=== PATIENT | male | born 1970 | race American Indian/Alaskan Native ===

== ENCOUNTER 2019-11-26 13:36 | Inpatient (IN) | payer OTHER ==
[2019-11-26] MEDS ORDERED: HYDROmorphone 1 MG/1 ML INJ IV ONE (14:30)
[2019-11-26] MEDS ORDERED: ONDANSETRON 4 MG/2 ML INJ IV ONE (14:30)
[2019-11-26] MEDS ORDERED: SODIUM CHLORIDE 0.9% 1000 ML 1,000 ML IV ONE (14:31)
[2019-11-26] MEDS ORDERED: PANTOPRAZOLE 40 MG INJ IV ONE (14:31)
--- NOTE | 2019-11-26 14:40 | Emergency Department Report ---
HPI - General Chief Complaint: Nausea/Vomiting/Diarrhea Time Seen by Provider: 11/26/19 14:22 - HPI HPI: Room 23 The patient is a 49-year-old male present with a chief complaint of abdominal pain and hematemesis. The patient states he has had pain in his left upper quadrant radiating to his back constantly for the past 2 weeks. Patient states he has had to sleep sitting up for the past week. The patient states today he developed hematemesis and worsening pain. Patient states she has had dark stool for the past week. Of note the patient states he has had a history of a AAA repair 1 - 2 years ago ED Past Medical Hx - Past Medical History Previous Medical History?: No - Surgical History Past Surgical History?: Yes Additional Surgical History: AAA repair - Social History Smoking Status: Former Smoker (None x10 years) Substance Use Type: None (Denies illicit drug use) - Medications Home Medications: Home Medications Medication Instructions Recorded Confirmed Last Taken Type No Known Home Medications [No 11/26/19 11/26/19 Unknown History Reported Home Medications] ED Review of Systems ROS: Stated complaint: VOMITING BLOOD Other details as noted in HPI Constitutional: no symptoms reported Eyes: denies: eye pain ENT: denies: throat pain Respiratory: no symptoms reported Cardiovascular: denies: chest pain Endocrine: no symptoms reported Gastrointestinal: abdominal pain, nausea, vomiting, hematemesis, melena Genitourinary: denies: dysuria Musculoskeletal: back pain Neurological: denies: headache Physical Exam - Physical Exam Vital Signs: Vital Signs 11/26/19 14:05 Temperature 98.5 F Pulse Rate 106 H Respiratory 16 Rate Blood Pressure 98/74 Blood Pressure 98/74 [Left] O2 Sat by Pulse 100 Oximetry Physical Exam: GENERAL: The patient is well-developed well-nourished male sitting on stretcher appearing to be in moderate discomfort, tearful. [] HEENT: Normocephalic. Atraumatic. Extraocular motions are intact. Patient has moist mucous membranes. NECK: Supple. Trachea midline CHEST/LUNGS: Clear to auscultation. There is no respiratory distress noted. HEART/CARDIOVASCULAR: Regular. There is no tachycardia. There is no gallop rub or murmur. ABDOMEN: Abdomen is soft, with tenderness to palpation of left upper quadrant. The remainder of the abdomen is benign. Patient has normal bowel sounds. There is no abdominal distention. SKIN: There is no rash. There is no edema. There is no diaphoresis. NEURO: The patient is awake, alert, and oriented. The patient is cooperative. The patient has normal speech MUSCULOSKELETAL: There is no evidence of acute injury. RECTAL: Guaiac positive black stool ED Course Vital Signs 11/26/19 14:05 Temperature 98.5 F Pulse Rate 106 H Respiratory 16 Rate Blood Pressure 98/74 Blood Pressure 98/74 [Left] O2 Sat by Pulse 100 Oximetry ED Medical Decision Making - Lab Data Result diagrams: 11/26/19 15:28 11/26/19 15:28 Laboratory Tests 11/26/19 11/26/19 11/26/19 15:23 15:28 15:28 WBC 10.9 RBC 3.19 L Hgb 7.6 L Hct 23.3 L MCV 73 L MCH 24 L MCHC 32 RDW 14.3 Plt Count 212 Lymph % (Auto) 7.0 L [place] % (Auto) 3.8 Eos % (Auto) 0.1 Baso % (Auto) 0.3 Lymph # 0.8 L [place] # 0.4 Eos # 0.0 Baso # 0.0 Seg Neutrophils % 88.8 H Seg Neutrophils # 9.7 H PT 15.6 H INR 1.22 H APTT 28.6 Sodium Potassium Chloride Carbon Dioxide Anion Gap BUN Creatinine Estimated GFR BUN/Creatinine Ratio Glucose Calcium Total Bilirubin AST ALT Alkaline Phosphatase Troponin T Total Protein Albumin Albumin/Globulin Ratio Lipase Blood Type O POSITIVE Antibody Screen Negative 11/26/19 11/26/19 15:28 15:28 WBC RBC Hgb Hct MCV MCH MCHC RDW Plt Count Lymph % (Auto) [place] % (Auto) Eos % (Auto) Baso % (Auto) Lymph # [place] # Eos # Baso # Seg Neutrophils % Seg Neutrophils # PT INR APTT Sodium 133 L Potassium 4.6 Chloride 101.7 Carbon Dioxide 21 L Anion Gap 15 BUN 40 H Creatinine 0.8 Estimated GFR > 60 BUN/Creatinine Ratio 50 Glucose 101 H Calcium 8.1 L Total Bilirubin 0.30 AST 18 ALT 13 Alkaline Phosphatase 34 L Troponin T < 0.010 Total Protein 5.7 L Albumin 3.4 L Albumin/Globulin Ratio 1.5 Lipase 21 Blood Type Antibody Screen - EKG Data -: EKG Interpreted by Me EKG shows normal: sinus rhythm Rate: normal - EKG Data When compared to previous EKG there are: previous EKG unavailable Interpretation: other (No ischemic changes seen) - Radiology Data Radiology results: report reviewed (CT angio abdomen pelvis), image reviewed (CT angio abdomen pelvis) Findings [facility] [address] [place] [address] Cat Scan Report Signed Patient: KWESI MAKI MR#: [id number] : 1970 Acct:[id number] Age/Sex: 49 / M ADM Date: 11/26/19 Loc: ED Attending Dr: Ordering Physician: BRIA GARCIA MD Date of Service: 11/26/19 Procedure(s): CT angio abdomen pelvis Accession Number(s): [id number] cc: BRIA GARCIA MD CT angio abdomen pelvis INDICATION: GI bleed, LUQ abd pain. h/o AAA repair TECHNIQUE: All CT scans at this location are performed using the following dose modulation technique: Automated exposure control. Helical slices were obtained through the abdomen and pelvis. 100 cc of Omnipaque 350 is administered. COMPARISON: CT scan dated 06/19/2012 FINDINGS: Abdomen: No acute abnormality is seen in the lower chest. There are multiple hypodensities in the liver characteristic of cysts. The spleen, pancreas, right adrenal gland, and small bowel show no acute abnormality. There is a 1.5 cm left adrenal nodule. There is no adenopathy. Pelvis: There is no adenopathy. No mass lesions are seen. There is no inflammatory change. Aorta: The proximal abdominal aorta at the level of the superior mesenteric artery measures approximately 3.6 cm in diameter. There is an aortic stent graft with originates at the level the renal arteries. No endoleak is seen. There are 2 right renal arteries and 2 left renal arteries. Renal arteries. Patent without stenosis identified. The celiac artery and superior mesenteric artery are patent without stenosis. The common iliac arteries are dilated measuring approximately 2.4 cm on both the right and left. The aortic stent graft extends to the level the distal common iliac arteries bilaterally. There is ectasia of the proximal aspects of the internal iliac arteries bilaterally. Bleeding site is not identified on today's exam. On review of bone windows, no acute osseous abnormalities are seen. IMPRESSION: 1. There is an aortic stent graft. No endoleak is seen. No extravasation of contrast is seen. A bleeding site is not identified on this exam. There are hepatic cysts. There is a 1.5 cm nodule in the left adrenal gland. This measured 1.2 cm in 2011 Signer Name: Morgan Camarena MD Signed: 11/26/2019 5:18 PM Workstation Name: [id number] Transcribed By: SS Dictated By: Morgan Camarena MD Electronically Authenticated By: Morgan Camarena MD Signed Date/Time: 11/26/191717 DD/ 99 TD/TT: - Differential Diagnosis GI bleed, aortoenteric fistula, peptic ulcer disease Critical care attestation.: If time is entered above; I have spent that time in minutes in the direct care of this critically ill patient, excluding procedure time. ED Disposition Clinical Impression: GI bleed Disposition: DC-[id number] OP ADMIT IP TO THIS HOSP Is pt being admited?: Yes Does the pt Need Aspirin: No Condition: Fair Time of Disposition: 17:26 (Hospitalist paged (Dr Seymour))
[2019-11-26 15:46] LABS: Basophils % (Auto) 0.3 % (0.0-1.8); Eosinophils % (Auto) 0.1 % (0.0-4.3); Hematocrit 23.3 % (35.5-45.6); Hemoglobin 7.6 gm/dl (11.8-15.2); Lymphocytes # (Auto) 0.8 K/mm3 (1.2-5.4); Mean Corpuscular HGB Conc 32 % (32-34); Mean Corpuscular Volume 73 fl (84-94); Monocytes # (Auto) 0.4 K/mm3 (0.0-0.8); Monocytes % (Auto) 3.8 % (0.0-7.3); Platelet Count 212 K/mm3 (140-440); Red Blood Count 3.19 M/mm3 (3.65-5.03); Red Cell Distribution Width 14.3 % (13.2-15.2)
[2019-11-26 15:56] LABS: INR 1.22 (0.87-1.13)
[2019-11-26 15:57] LABS: Partial Thromboplastin Time 28.6 Sec. (24.2-36.6)
[2019-11-26 15:58] LABS: BUN/Creatinine Ratio 50; Blood Urea Nitrogen 40 mg/dL (9-20); Calcium 8.1 mg/dL (8.4-10.2)
[2019-11-26 15:59] LABS: Alanine Aminotransferase 13 units/L (7-56); Albumin 3.4 g/dL (3.9-5); Hemolysis Index 2
[2019-11-26] MEDS: PANTOPRAZOLE 80 MG in SODIUM CHLORIDE 0.9% 100 ML IV SCH ×2 (16:36→23:35)
--- NOTE | 2019-11-26 17:00 | Event Note ---
Date: 11/26/19 Consulted for GI bleed. Spoke with ER physician, he reports patient with guaiac positive stool, 1 week melena, however he reports patient is not having active melena currently and is not currently having active life-threatening bleed at this time. Based upon the story provided appears most consistent with upper GI source. PPI drip. N.p.o. Plan for EGD in the morning. If patient has significant overt GI bleeding please call immediately and we can perform emergent egd if needed
--- NOTE | 2019-11-26 17:22 | Cat Scan Report ---
CT angio abdomen pelvis INDICATION: GI bleed, LUQ abd pain. h/o AAA repair TECHNIQUE: All CT scans at this location are performed using the following dose modulation technique: Automated exposure control. Helical slices were obtained through the abdomen and pelvis. 100 cc of Omnipaque 35 0 is administered. COMPARISON: CT scan dated 06/19/2012 FINDINGS: Abdomen: No acute abnormality is seen in the lower chest. There are multiple hypodensities in the mariah er characteristic of cysts. The spleen, pancreas, right adrenal gland, and small bowel show no acute abnormality. There is a 1.5 cm left adrenal nodule. There is no adenopathy. Pelvis: There is no adenopathy. No mass lesions are seen. There is no inflammatory change. Aorta: The proximal abdominal aorta at the level of the superior mesenteric artery measures approxima tely 3.6 cm in diameter. There is an aortic stent graft with originates at the level the renal arteri es. No endoleak is seen. There are 2 right renal arteries and 2 left renal arteries. Renal arteries. Patent without stenosis identified. The celiac artery and superior mesenteric artery are patent witho ut stenosis. The common iliac arteries are dilated measuring approximately 2.4 cm on both the right and left. The aortic stent graft extends to the level the distal common iliac arteries bilaterally. There is ectasi a of the proximal aspects of the internal iliac arteries bilaterally. Bleeding site is not identified on today's exam. On review of bone windows, no acute osseous abnormalities are seen. IMPRESSION: 1. There is an aortic stent graft. No endoleak is seen. No extravasation of contrast is seen. A bleed ing site is not identified on this exam. There are hepatic cysts. There is a 1.5 cm nodule in the left adrenal gland. This measured 1.2 cm in 2011 Signer Name: Morgan Camarena MD Signed: 11/26/2019 5:18 PM Workstation Name: [id number]
[2019-11-26] MEDS ORDERED: HYDROmorphone 1 MG/1 ML INJ ONE (20:44)
--- NOTE | 2019-11-26 20:49 | History and Physical Report ---
History of Present Illness Date of examination: 11/26/19 Date of admission: 11/26/19 17:32 Chief complaint: Vomiting blood since a.m. Dark stools for 1 week History of present illness: 49-year-old -[place] male with history of AAA repair comes in for epigastric pain and vomiting blood today. Patient has been having dark stools for the last 2 weeks. Patient did not have this type of problem in the past. Did not take any Goody powders or nonsteroidal anti-inflammatories. No lightheadedness. Patient had a graft put in the AAA few years ago. No hypert ension. No exacerbating or relieving factors. Past Medical History Previous Medical History?: No Surgical History Past Surgical History?: Yes Additional Surgical History: AAA repair Social History Smoking Status: Former Smoker (None x10 years) Substance Use Type: None (Denies illicit drug use) Family history Htn - Medications Home Medications: Home Medications Medication Instructions Recorded Confirmed Last Taken Type No Known Home Medications [No 11/26/19 11/26/19 Unknown History Reported Home Medications] Review of Systems ROS: Review of System: Constitutional: no fever, no chills, no weight loss Ears, eyes, nose, mouth and throat: no nasal congestion, no nasal discharge, no sinus pressure, no vision change, no red eye. Neck: No neck pain or rigidity. Cardiovascular: No chest pain, no orthopnea, no palpitations, no leg swelling Respiratory: No shortness of breath, no cough, no congestion, no wheezing Gastrointestinal: Hematemesis and melanotic stools Genitourinary : no dysuria, no hematuria Musculoskeletal: no joint swelling or muscle ache Integumentary: no rash, no pruritis Neurological: no parathesias, no numbness, no tingling Endocrine: no cold or heat intolerance, no polyuria or polydipsia Hematologic/Lymphatic: no easy bruising, no easy bleeding, no gland swelling Allergic/Immunologic: no urticaria, no angioedema. Stated complaint: VOMITING BLOOD Other details as noted in HPI Constitutional: no symptoms reported Eyes: denies: eye pain ENT: denies: throat pain Respiratory: no symptoms reported Cardiovascular: denies: chest pain Endocrine: no symptoms reported Gastrointestinal: abdominal pain, nausea, vomiting, hematemesis, melena Genitourinary: denies: dysuria Musculoskeletal: back pain Neurological: denies: headache Medications and Allergies Allergies Allergy/AdvReac Type Severity Reaction Status Date / Time No Known Allergies Allergy Verified 11/26/19 14:33 Home Medications Medication Instructions Recorded Confirmed Last Taken Type No Known Home Medications [No 11/26/19 11/26/19 Unknown History Reported Home Medications] Active Meds: Active Medications Hydromorphone HCl (Dilaudid) 0.5 mg IV Q3H PRN PRN Reason: Pain , Severe (7-10) Pantoprazole Sodium 80 mg/ (Sodium Chloride) 100 mls @ 10 mls/hr IV DIRECT YOUNG Last Admin: 11/26/19 16:36 Dose: 8 mg/hr, 10 mls/hr Documented by: Exam - Constitutional Vitals: Temp Pulse Resp BP Pulse Ox 98.5 F 95 H 16 126/52 96 11/26/19 14:05 11/26/19 18:32 11/26/19 18:32 11/26/19 18:32 11/26/19 18:32 General appearance: Present: no acute distress, well-nourished - EENT Eyes: Present: PERRL ENT: hearing intact, clear oral mucosa - Neck Neck: Present: supple, normal ROM - Respiratory Respiratory effort: normal Respiratory: bilateral: CTA - Cardiovascular Heart rate: 88 Rhythm: regular Heart Sounds: Present: S1 & S2. Absent: rub, click - Extremities Extremities: no ischemia, pulses intact, pulses symmetrical, No edema Peripheral Pulses: within normal limits - Abdominal General gastrointestinal: Present: soft, non-tender, non-distended, normal bowel sounds Male genitourinary: Present: normal - Rectal Rectal Exam: deferred - Integumentary Integumentary: Present: clear, warm, dry - Musculoskeletal Musculoskeletal: gait normal, strength equal bilaterally - Psychiatric Psychiatric: appropriate mood/affect, intact judgment & insight - Neurologic Neurologic: CNII-XII intact, moves all extremities Results - Labs CBC & Chem 7: 11/26/19 15:28 11/26/19 15:28 Labs: Laboratory Last Values WBC 10.9 K/mm3 (4.5-11.0) 11/26/19 15:28 RBC 3.19 M/mm3 (3.65-5.03) L 11/26/19 15:28 Hgb 7.6 gm/dl (11.8-15.2) L 11/26/19 15:28 Hct 23.3 % (35.5-45.6) L 11/26/19 15: MCV 73 fl (84-94) L 11/26/19: MCH 24 pg (28-32) L 11/26/19 15: MCHC 32 % (32-34) 11/26/19 15: RDW 14.3 % (13.2-15.2) 11/26/19 15: Plt Count 212 K/mm3 (140-440) 11/26/19 15: Lymph % (Auto) 7.0 % (13.4-35.0) L 11/26/19 15: [place] % (Auto) 3.8 % (0.0-7.3) 11/26/19: Eos % (Auto) 0.1 % (0.0-4.3) 11/26/19: Baso % (Auto) 0.3 % (0.0-1.8) 11/26/19: Lymph # 0.8 K/mm3 (1.2-5.4) L 11/26/19: [place] # 0.4 K/mm3 (0.0-0.8) 11/26/19: Eos # 0.0 K/mm3 (0.0-0.4) 11/26/19: Baso # 0.0 K/mm3 (0.0-0.1) 11/26/19 15: Seg Neutrophils % 88.8 % (40.0-70.0) H 11/26/19 15: Seg Neutrophils # 9.7 K/mm3 (1.8-7.7) H 11/26/19 15: PT 15.6 Sec. (12.2-14.9) H 11/26/19 15: INR 1.22 (0.87-1.13) H 11/26/19 15:28 APTT 28.6 Sec. (24.2-36.6) 11/26/19 15:28 Sodium 133 mmol/L (137-145) L 11/26/19 15: Potassium 4.6 mmol/L (3.6-5.0) 11/26/19 15: Chloride 101.7 mmol/L (98-107) 11/26/19 15:28 Carbon Dioxide 21 mmol/L (22-30) L 11/26/19 15:28 Anion Gap 15 mmol/L 11/26/19 15:28 BUN 40 mg/dL (9-20) H 11/26/19 15:28 Creatinine 0.8 mg/dL (0.8-1.5) 11/26/19 15:28 Estimated GFR > 60 ml/min 11/26/19 15:28 BUN/Creatinine Ratio 50 % 11/26/19 15:28 Glucose 101 mg/dL (75-100) H 11/26/19 15:28 Calcium 8.1 mg/dL (8.4-10.2) L 11/26/19 15:28 Total Bilirubin 0.30 mg/dL (0.1-1.2) 11/26/19 15:28 AST 18 units/L (5-40) 11/26/19 15:28 ALT 13 units/L (7-56) 11/26/19 15:28 Alkaline Phosphatase 34 units/L (35-129) L 11/26/19 15:28 Troponin T < 0.010 ng/mL (0.00-0.029) 11/26/19 15:28 Total Protein 5.7 g/dL (6.3-8.2) L 11/26/19 15:28 Albumin 3.4 g/dL (3.9-5) L 11/26/19 15:28 Albumin/Globulin Ratio 1.5 % 11/26/19 15:28 Lipase 21 units/L (13-60) 11/26/19 15:28 Blood Type O POSITIVE 11/26/19 15:23 Antibody Screen Negative 11/26/19 15:23 Microbiology: Microbiology 11/26/19 15:00 Stool Stool Occult Blood (NAY) - Final - Imaging and Cardiology EKG: report reviewed (Heart rate 90/min ST elevations nonspecific) Assessment and Plan Advance Directives: Yes (Full code) VTE prophylaxis?: Mechanical (Full code) Plan of care discussed with patient/family: Yes - Patient Problems (1) Upper GI bleed Current Visit: Yes Status: Acute Plan to address problem: IV Protonix drip IV fluids GI consult Possible EGD today or tomorrow Hemoglobin and hematocrit every 8 Transfuse if necessary (2) Symptomatic anemia Current Visit: Yes Status: Acute Plan to address problem: Transfuse 1 unit of blood Monitor hemoglobin and hematocrit (3) AAA (abdominal aortic aneurysm) Current Visit: Yes Status: Chronic Qualifiers: Presence of rupture: without rupture Qualified Code(s): I71.4 - Abdominal aortic aneurysm, without rupture Plan to address problem: Stable (4) Hypocalcemia Current Visit: Yes Status: Chronic Plan to address problem: Supplemented To start on Caltrate after EGD (5) Hyponatremia Current Visit: Yes Status: Acute Plan to address problem: Mild Should correct with IV fluids (6) Malnutrition Current Visit: Yes Status: Acute Plan to address problem: Moderate Dietitian consult (7) DVT prophylaxis Current Visit: Yes Status: Acute Plan to address problem: SCDs and GI prophylaxis. Patient already on Protonix drip
[2019-11-26] MEDS: HYDROmorphone 1 MG/1 ML INJ IV PRN (21:00)
[2019-11-26] MEDS ORDERED: ONDANSETRON 4 MG/2 ML INJ IV PRN (21:02)
[2019-11-26] MEDS ORDERED: SODIUM CHLORIDE 0.9% 500 ML 500 ML IV ONE ×2 (21:05→23:30)
[2019-11-27] MEDS: HYDROmorphone 1 MG/1 ML INJ IV PRN (00:59)
[2019-11-27] MEDS: D5W/0.9% NACL 1,000 ML IV SCH ×2 (02:42→17:26)
[2019-11-27] MEDS ORDERED: WATER FOR IRRIG STERILE 1,000 ML BOTTLE ONE (07:45)
[2019-11-27] MEDS ORDERED: WATER FOR IRRIG STERILE 250 ML BOTTLE IR ONE ×2 (07:45→08:10)
[2019-11-27] MEDS ORDERED: SODIUM CHLORIDE 0.9% 1000 ML 1,000 ML IV SCH (08:00)
[2019-11-27 08:36] LABS: Hematocrit 23.1 % (35.5-45.6); Hemoglobin 7.6 gm/dl (11.8-15.2)
[2019-11-27 08:37] LABS: Basophils % (Auto) 0.5 % (0.0-1.8); Eosinophils % (Auto) 0.6 % (0.0-4.3); Hematocrit 22.8 % (35.5-45.6); Hemoglobin 7.4 gm/dl (11.8-15.2); Lymphocytes # (Auto) 1.9 K/mm3 (1.2-5.4); Lymphocytes % (Auto) 25.6 % (13.4-35.0); Mean Corpuscular HGB Conc 33 % (32-34); Mean Corpuscular Volume 76 fl (84-94); Monocytes # (Auto) 0.6 K/mm3 (0.0-0.8); Platelet Count 177 K/mm3 (140-440); Red Cell Distribution Width 15.6 % (13.2-15.2)
[2019-11-27 08:59] LABS: Alanine Aminotransferase 11 units/L (7-56); Albumin 3.2 g/dL (3.9-5); BUN/Creatinine Ratio 27; Blood Urea Nitrogen 24 mg/dL (9-20); Calcium 8.4 mg/dL (8.4-10.2); Hemolysis Index 7
[2019-11-27] MEDS ORDERED: fentaNYL 100 MCG/2 ML INJ ONE (09:02)
[2019-11-27] MEDS ORDERED: LIDOCAINE MPF (2%) 20 MG/1 ML VIAL 5 ML ONE (09:02)
[2019-11-27] MEDS ORDERED: propofoL 200 MG/20 ML VIAL IV ONE (09:02)
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
--- NOTE | 2019-11-27 09:05 | Anesthesia Day of Surgery ---
Anesthesia Day of Surgery - Day of Surgery Patient Examined: Yes Patient H&P Reviewed: Yes Patient is NPO: Yes
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
--- NOTE | 2019-11-27 09:32 | Operative Report ---
Operative Report Operative Report: DOS: 11/27/2019 SURGEON: Issa Ellison MD EGD WITH BIOPSY REPORT PREOPERATIVE DIAGNOSIS and POSTOPERATIVE DIAGNOSIS: Upper GI bleed ESTIMATED BLOOD LOSS: Minimal DESCRIPTION OF PROCEDURE: A high-resolution EGD scope was passed through the oropharynx, esophagus, stomach, and second portion of duodenum. The scope was carefully withdrawn. Retroflexion was performed in the stomach. At the end of the procedure, the scope was cleaned using normal technique. Vital signs monitored continuously throughout. SEDATION: Provided by Anest[facility]iology Services. COMPLICATIONS: None. FINDINGS: * Normal second portion of the duodenum * Multiple superficial ulcers in the duodenal bulb, largest 5 mm in diameter erythema and friability but no active bleeding at the time of the endoscopy. Cold biopsy forceps utilized to obtain biopsies around the area of ulcerations rule out dysplasia * Moderate atrophic appearing gastritis of the gastric antrum. Biopsies were taken to rule out H. Pylori infection. A total of 5 biopsies were taken using cold biopsy forceps, 2 from the antrum, 1 from the incisura, 2 from the body. * 1 cm hiatal hernia * Z line irregular at approximately 40 cm from the incisors * Normal esophagus RECOMMENDATIONS: * No further active GI bleeding. May change PPI to twice daily PPI. Add Carafate (I have placed these orders are ready) * Follow-up pathology results * Will start patient on diet and advance as tolerated * If his pain is controlled and his hemoglobin is stable tomorrow and there is no more clinical evidence of GI bleeding then may discharge tomorrow with close outpatient follow-up with me
--- NOTE | 2019-11-27 09:36 | Post Anesthesia Evaluation ---
- Post Anesthesia Evaluation Patient Participated: Yes Airway Patent: Yes Stable Respiratory Function: Yes Nausea/Vomiting: No Temp > 96.8F: Yes Pain Manageable: Yes Adequeate Hydration: Yes Anesthesia Complications: No Block Receding Appropriately: Not Applicable Patient on Ventilator: No
[2019-11-27] MEDS: SUCRALFATE 1 GM/10 ML ORAL LIQD PO SCH ×3 (11:03→21:15)
[2019-11-27] MEDS: PANTOPRAZOLE 40 MG INJ IV SCH ×2 (11:03→21:15)
[2019-11-27] MEDS: ACETAMINOPHEN 325 MG TAB PO PRN ×2 (13:38→21:15)
[2019-11-27 16:41] LABS: Hematocrit 21.5 % (35.5-45.6); Hemoglobin 7.1 gm/dl (11.8-15.2)
--- NOTE | 2019-11-27 20:15 | Progress Note ---
Assessment and Plan Assessment and plan: 49-year-old -[place] male patient was admitted through emergency room with hematemesis and melena of 1 week Noted to have mild anemia, evaluated by GI, underwent EGD --Upper GI bleeding; Status post EGD; findings reviewed Continue Protonix EGD: FINDINGS: * Normal second portion of the duodenum * Multiple superficial ulcers in the duodenal bulb, largest 5 mm in diameter erythema and friability but no active bleeding at the time of the endoscopy. Cold biopsy forceps utilized to obtain biopsies around the area of ulcerations rule out dysplasia * Moderate atrophic appearing gastritis of the gastric antrum. Biopsies were taken to rule out H. Pylori infection. A total of 5 biopsies were taken using cold biopsy forceps, 2 from the antrum, 1 from the incisura, 2 from the body. * 1 cm hiatal hernia * Z line irregular at approximately 40 cm from the incisors * Normal esophagus RECOMMENDATIONS: * No further active GI bleeding. May change PPI to twice daily PPI. Add Carafate (I have placed these orders are ready) * Follow-up pathology results * Will start patient on diet and advance as tolerated * If his pain is controlled and his hemoglobin is stable tomorrow and there is no more clinical evidence of GI bleeding then may discharge tomorrow with close outpatient follow-up with [place] --Symptomatic anemia; Received 1 unit of PRBC, monitor H&H Transfuse additional unit as needed --History of abdominal aortic aneurysm;Stable --Hyponatremia; is not on admission Significantly improved --Mild protein calorie malnutrition; Nutrition supplements and supportive care --DVT prophylaxis; SCDs No pharmacologic anticoagulation in view of GI bleeding and anemia Closely monitor the patient and adjust management as needed Follow H&H, if stable may DC home tomorrow if cleared by GI Disposition; discharge tomorrow if stable, and cleared by GI History Interval history: Patient seen and examined at the bedside Patient's chart, procedures, tests and medications reviewed Patient underwent EGD this morning Findings reviewed No new episodes of bleeding Vital signs noted Hospitalist Physical - Constitutional Vitals: Temp Pulse Resp BP Pulse Ox 98.4 F 85 18 99/65 99 11/27/19 19:23 11/27/19 19:23 11/27/19 19:23 11/27/19 19:23 11/27/19 19:23 General appearance: Present: no acute distress, well-nourished - EENT Eyes: Present: PERRL, EOM intact - Neck Neck: Present: supple, normal ROM - Respiratory Respiratory effort: normal Respiratory: bilateral: diminished, negative: rales, rhonchi, wheezing - Cardiovascular Rhythm: regular Heart Sounds: Present: S1 & S2 - Extremities Extremities: no ischemia, No edema - Abdominal General gastrointestinal: soft, non-tender, non-distended, normal bowel sounds - Integumentary Integumentary: Present: clear, warm - Psychiatric Psychiatric: appropriate mood/affect, cooperative - Neurologic Neurologic: moves all extremities Results - Labs CBC & Chem 7: 11/27/19 16:14 11/27/19 07:05 Labs: Laboratory Last Values WBC 7.5 K/mm3 (4.5-11.0) 11/27/19 07:05 RBC 3.00 M/mm3 (3.65-5.03) L 11/27/19 07:05 Hgb 7.1 gm/dl (11.8-15.2) L 11/27/19 16:14 Hct 21.5 % (35.5-45.6) L 11/27/19 16:14 MCV 76 fl (84-94) L 11/27/19 07:05 MCH 25 pg (28-32) L 11/27/19 07:05 MCHC 33 % (32-34) 11/27/19 07:05 RDW 15.6 % (13.2-15.2) H 11/27/19 07:05 Plt Count 177 K/mm3 (140-440) 11/27/19 07:05 Lymph % (Auto) 25.6 % (13.4-35.0) 11/27/19 07:05 [place] % (Auto) 8.0 % (0.0-7.3) H 11/27/19 07:05 Eos % (Auto) 0.6 % (0.0-4.3) 11/27/19 07:05 Baso % (Auto) 0.5 % (0.0-1.8) 11/27/19 07:05 Lymph # 1.9 K/mm3 (1.2-5.4) 11/27/19 07:05 [place] # 0.6 K/mm3 (0.0-0.8) 11/27/19 07:05 Eos # 0.0 K/mm3 (0.0-0.4) 11/27/19 07:05 Baso # 0.0 K/mm3 (0.0-0.1) 11/27/19 07:05 Seg Neutrophils % 65.3 % (40.0-70.0) 11/27/19 07:05 Seg Neutrophils # 4.9 K/mm3 (1.8-7.7) 11/27/19 07:05 PT 15.6 Sec. (12.2-14.9) H 11/26/19 15:28 INR 1.22 (0.87-1.13) H 11/26/19 15:28 APTT 28.6 Sec. (24.2-36.6) 11/26/19 15:28 Sodium 137 mmol/L (137-145) 11/27/19 07:05 Potassium 4.3 mmol/L (3.6-5.0) 11/27/19 07:05 Chloride 103.4 mmol/L (98-107) 11/27/19 07:05 Carbon Dioxide 20 mmol/L (22-30) L 11/27/19 07:05 Anion Gap 18 mmol/L 11/27/19 07:05 BUN 24 mg/dL (9-20) H 11/27/19 07:05 Creatinine 0.9 mg/dL (0.8-1.5) 11/27/19 07:05 Estimated GFR > 60 ml/min 11/27/19 07:05 BUN/Creatinine Ratio 27 % 11/27/19 07:05 Glucose 104 mg/dL (75-100) H 11/27/19 07:05 Calcium 8.4 mg/dL (8.4-10.2) 11/27/19 07:05 Total Bilirubin 0.60 mg/dL (0.1-1.2) 11/27/19 07:05 AST 17 units/L (5-40) 11/27/19 07:05 ALT 11 units/L (7-56) 11/27/19 07:05 Alkaline Phosphatase 30 units/L (35-129) L 11/27/19 07:05 Troponin T < 0.010 ng/mL (0.00-0.029) 11/26/19 15:28 Total Protein 5.1 g/dL (6.3-8.2) L 11/27/19 07:05 Albumin 3.2 g/dL (3.9-5) L 11/27/19 07:05 Albumin/Globulin Ratio 1.7 % 11/27/19 07:05 Lipase 21 units/L (13-60) 11/26/19 15:28 Blood Type O POSITIVE 11/26/19 15:23 Antibody Screen Negative 11/26/19 15:23 Crossmatch See Detail 11/26/19 15:23 Ceron/IV: Voiding Method Toilet IV Catheter Type [Right Peripheral IV Antecubital] IV Catheter Type [Left INT / Saline Lock Antecubital] Active Medications - Current Medications Current Medications: Generic Name Dose Route Start Last Admin Trade Name Freq PRN Reason Stop Dose Admin Acetaminophen 650 mg 11/26/19 21:02 11/27/19 13:38 Tylenol PO 650 mg Q4H PRN Administration Pain MILD(1-3)/Fever >100.5/SYLVESTER Hydromorphone HCl 0.5 mg 11/26/19 20:36 11/27/19 00:59 Dilaudid IV 0.5 mg Q3H PRN Administration Pain , Severe (7-10) Dextrose/Sodium Chloride 1,000 mls @ 75 mls/hr 11/26/19 22:00 11/27/19 17:26 D5ns IV 75 mls/hr DIRECT YOUNG Administration Sodium Chloride 1,000 mls @ 50 mls/hr 11/27/19 08:00 11/27/19 09:13 Nacl 0.9% 1000 Ml IV 50 mls/hr DIRECT YOUNG Administration Ondansetron HCl 4 mg 11/26/19 21:02 Zofran IV Q8H PRN Nausea And Vomiting Pantoprazole Sodium 40 mg 11/27/19 10:00 11/27/19 11:03 Protonix IV 40 mg BID YOUNG Administration Sodium Chloride 10 ml 11/26/19 22:00 11/27/19 11:04 Sodium Chloride Flush Syringe 10 Ml IV 10 ml BID YOUNG Administration Sodium Chloride 10 ml 11/26/19 21:02 Sodium Chloride Flush Syringe 10 Ml IV PRN PRN LINE FLUSH Sucralfate 1 gm 11/27/19 11:30 11/27/19 17:25 Carafate PO 1 gm ACHS YOUNG Administration
[2019-11-28 05:24] LABS: Hematocrit 20.8 % (35.5-45.6)
[2019-11-28 05:40] LABS: Hemoglobin 6.7 gm/dl (11.8-15.2)
[2019-11-28] MEDS ORDERED: SODIUM CHLORIDE 0.9% 500 ML 500 ML IV NR ×2 (07:36→12:00)
[2019-11-28] MEDS: D5W/0.9% NACL 1,000 ML IV SCH (07:41)
[2019-11-28] MEDS: SUCRALFATE 1 GM/10 ML ORAL LIQD PO SCH ×3 (07:41→17:01)
--- NOTE | 2019-11-28 09:13 | Gastroenterology Progress Note ---
Assessment and Plan patient with duodenal ulcers as putative source of the GI bleeding Hgb did drop below 7 so getting 1 unit prbc. Suspect drop in hemoglobin due to equilibration and hemodilution rather than any further GI bleeding Repeat hemoglobin posttransfusion, if has appropriate elevation and no clinical bleeding then can discharge with outpatient follow-up with me and continuation of Protonix 40 mg p.o. twice daily and Carafate 1 g p.o. 4 times daily - Patient Problems (1) GI bleed Current Visit: Yes Status: Acute (2) Symptomatic anemia Current Visit: Yes Status: Acute (3) Upper GI bleed Current Visit: Yes Status: Acute Subjective Date of service: 11/28/19 Principal diagnosis: Anemia Interval history: Pt with gradual decline in hgb, awaiting prbc He reports significant improvement in symptoms today with mild to moderate intermittent abdominal pain much improved compared to prior to admission No bowel movements since admission EGD 11/26 * Normal second portion of the duodenum * Multiple superficial ulcers in the duodenal bulb, largest 5 mm in diameter erythema and friability but no active bleeding at the time of the endoscopy. Cold biopsy forceps utilized to obtain biopsies around the area of ulcerations rule out dysplasia * Moderate atrophic appearing gastritis of the gastric antrum. Biopsies were taken to rule out H. Pylori infection. A total of 5 biopsies were taken using cold biopsy forceps, 2 from the antrum, 1 from the incisura, 2 from the body. * 1 cm hiatal hernia * Z line irregular at approximately 40 cm from the incisors * Normal esophagus Objective - Constitutional Vitals: Temp Pulse Resp BP Pulse Ox 98.4 F 76 18 100/64 96 11/28/19 07:54 11/28/19 07:54 11/28/19 08:10 11/28/19 07:54 11/28/19 08:10 General appearance: no acute distress - Respiratory Respiratory effort: normal - Cardiovascular Rhythm: regular - Gastrointestinal General gastrointestinal: Present: soft, non-tender - Labs CBC & Chem 7: 11/28/19 04:47 11/27/19 07:05 Labs: Laboratory Results - last 24 hr 11/26/19 11/27/19 11/28/19 15:23 16:14 04:47 Hgb 7.1 L 6.7 L Hct 21.5 L 20.8 L Crossmatch See Detail
[2019-11-28] MEDS: PANTOPRAZOLE 40 MG INJ IV SCH (09:31)
[2019-11-28] MEDS: HYDROmorphone 1 MG/1 ML INJ IV PRN (12:04)
--- NOTE | 2019-11-28 13:07 | Discharge Summary ---
Providers - Providers Date of Admission: 11/26/19 17:32 Attending physician: ABRAHAM PINZON MD 11/26/19 15:22 Consult to Physician [CONS] Urgent Comment: Consulting Provider: KRYSTEN FRANCO Physician Instructions: Reason For Exam: Upper GI bleed [facility] Reason for admission: ANEMIA Condition: Stable Hospital course: Receive an additional unit of packed red blood cell likely discharge after that. Patient will have a repeat H&H post transfusion advised patient. Of advised the patient to take PPIs. And follow-up with GI in the office. 49-year-old -[place] male patient was admitted through emergency room with hematemesis and melena of 1 week Noted to have mild anemia, evaluated by GI, underwent EGD --Upper GI bleeding; Status post EGD; findings reviewed Continue Protonix EGD: FINDINGS: * Normal second portion of the duodenum * Multiple superficial ulcers in the duodenal bulb, largest 5 mm in diameter erythema and friability but no active bleeding at the time of the endoscopy. Cold biopsy forceps utilized to obtain biopsies around the area of ulcerations rule out dysplasia * Moderate atrophic appearing gastritis of the gastric antrum. Biopsies were taken to rule out H. Pylori infection. A total of 5 biopsies were taken using cold biopsy forceps, 2 from the antrum, 1 from the incisura, 2 from the body. * 1 cm hiatal hernia * Z line irregular at approximately 40 cm from the incisors * Normal esophagus RECOMMENDATIONS: * No further active GI bleeding. May change PPI to twice daily PPI. Add Carafate (I have placed these orders are ready) * Follow-up pathology results * Will start patient on diet and advance as tolerated * If his pain is controlled and his hemoglobin is stable tomorrow and there is no more clinical evidence of GI bleeding then may discharge tomorrow with close outpatient follow-up with [facility] --Symptomatic anemia; Received 1 unit of PRBC, monitor H&H Transfuse additional unit as needed --History of abdominal aortic aneurysm;Stable --Hyponatremia; is not on admission Significantly improved --Mild protein calorie malnutrition; Nutrition supplements and supportive care Disposition: TO HOME OR SELFCARE Time spent for discharge: 35 MINS Core Measure Documentation - Palliative Care Palliative Care/ Comfort Measures: Not Applicable - Core Measures Any of the following diagnoses?: none Exam - Physical Exam Narrative exam: VITAL SIGNS: Reviewed. GENERAL: The patient appears normally developed, Vital signs as documented. HEAD: No signs of head trauma. EYES: Pupils are equal. Extraocular motions intact. EARS: Hearing grossly intact. MOUTH: Oropharynx is normal. NECK: No adenopathy, no JVD. CHEST: Chest with clear breath sounds bilaterally. No wheezes, rales, or rhonchi. CARDIAC: Regular rate and rhythm. S1 and S2, without murmurs, gallops, or rubs. VASCULAR: No Edema. Peripheral pulses normal and equal in all extremities. ABDOMEN: Soft, non tender and non distended. No rebound or guarding, and no masses palpated. Bowel Sounds normal. MUSCULOSKELETAL: Good range of motion of all major joints. Extremities without clubbing, cyanosis or edema. NEUROLOGIC EXAM: Alert and oriented x 3 No focal sensory or strength deficits. Speech normal. Follows commands. PSYCHIATRIC: Mood normal. SKIN: detial exam as documented in skin assessment - Constitutional Vitals: Temp Pulse Resp BP Pulse Ox 98.6 F 72 18 107/68 100 11/28/19 12:45 11/28/19 12:45 11/28/19 12:45 11/28/19 12:45 11/28/19 12:45 Plan Activity: advance as tolerated Diet: low fat, low salt Special Instructions: record daily weights, record daily BP diary Additional Instructions: must avoid all NSAIDS [facility] - 3-5 Days KRYSTEN FRANCO MD [Staff Physician] - 7 Days Forms: Work/School Release Form Prescriptions: Sucralfate [Carafate] 1 gm PO ACHS 30 Days oral.liqd Pantoprazole [Protonix TAB] 40 mg PO BID #60 tablet
[2019-11-28 15:31] VITALS: BP 110/72
[2019-11-28 15:34] LABS: Hematocrit 23.1 % (35.5-45.6); Hemoglobin 7.6 gm/dl (11.8-15.2)
== END 2019-11-28 17:47 | disposition home or self-care (01) | DRG 378 ==
LOC: ED 13:36 → 4A 17:32
PROVIDERS: ADMIT Internal Medicine; ATTEND Internal Medicine
PROC: 0DB98ZX Excision of Duodenum, Via Natural or Artificial Opening Endoscopic, Diagnostic (ICD-10-PCS; principal; 2019-11-27)
PROC: 0DB68ZX Excision of Stomach, Via Natural or Artificial Opening Endoscopic, Diagnostic (ICD-10-PCS; 2019-11-27)
PROC: 30233N1 Transfusion of Nonautologous Red Blood Cells into Peripheral Vein, Percutaneous Approach (ICD-10-PCS; 2019-11-27)
DX: K26.4 Chronic or unspecified duodenal ulcer with hemorrhage (principal); E87.1 Hypo-osmolality and hyponatremia; E44.1 Mild protein-calorie malnutrition; D64.9 Anemia, unspecified; I71.4 Abdominal aortic aneurysm, without rupture; E83.51 Hypocalcemia; K44.9 Diaphragmatic hernia without obstruction or gangrene; G89.29 Other chronic pain; Z79.899 Other long term (current) drug therapy; Z87.891 Personal history of nicotine dependence; Z68.27 Body mass index [BMI] 27.0-27.9, adult
CPT/HCPCS: 36415; 74174; 80053; 82271; 83690; 84484; 85014; 85018; 85025; 85610; 85730; 86850; 86900; 86901; 86920; 88305; 88342; 93005; 93010; G0378; C9113; J1170; J2405; J2704; J3010; J7030; J7040; J7042; P9016; Q9967